=== PATIENT | female | born 1970 | race Two or more races ===

== ENCOUNTER 2022-01-26 18:50 | Emergency (ER) | payer BC ==
[~2022-01-26] VITALS: Ht 167.6 cm; Wt 77.3 kg
[2022-01-26] MEDS ORDERED: KETOROLAC TROMETH 60MG/2ML VIAL IM ONE (23:00)
[2022-01-26] MEDS ORDERED: HYDR-4902 PO (23:12)
[2022-01-26] MEDS ORDERED: ONDA-144 PO (23:12)
[2022-01-26] MEDS ORDERED: ALBUAER3 IN (23:12)
[2022-01-26] MEDS ORDERED: AZITTAB PO (23:12)
[2022-01-26 23:26] VITALS: BP 131/91
== END 2022-01-26 23:32 | disposition home or self-care (01) ==
LOC: ER 18:52
DX: S22.32XA Fracture of one rib, left side, initial encounter for closed fracture (principal); F17.210 Nicotine dependence, cigarettes, uncomplicated; E78.5 Hyperlipidemia, unspecified; W19.XXXA Unspecified fall, initial encounter; Y93.89 Activity, other specified; Y92.89 Other specified places as the place of occurrence of the external cause; Y99.8 Other external cause status
CPT/HCPCS: 71250; 96372; 99284; J1885